=== PATIENT | female | born 1945 | race Caucasian/White ===

== ENCOUNTER 2021-05-15 07:39 | Emergency (ER) | payer OTHER ==
[~2021-05-15] VITALS: Ht 152.4 cm; Wt 55.3 kg
[2021-05-15] MEDS ORDERED: PRAVASTATIN SOD20 MG PO (07:57)
[2021-05-15] MEDS ORDERED: TOPROL XL25 M1 PO (07:57)
== END 2021-05-15 10:07 ==
LOC: ER 07:39
DX: M54.59 Other low back pain (principal); M62.838 Other muscle spasm